=== PATIENT | female | born 2000 | race Two or more races ===

== ENCOUNTER 2024-12-18 01:57 | Emergency (ER) | payer OTHER ==
[~2024-12-18] VITALS: Ht 160 cm; Wt 68.0 kg
[2024-12-18] MEDS ORDERED: CEFTRIAXONE SODIUM 2,000 MG VIAL IV ONE (02:00)
[2024-12-18] MEDS ORDERED: FAMOTIDINE/PF 20 MG in 0.9 % SODIUM CHLORIDE 8 ML IV PUSH STA (02:02)
[2024-12-18] MEDS ORDERED: 0.9 % SODIUM CHLORIDE 1,000 ML IV ONE (02:15)
[2024-12-18] MEDS ORDERED: KETOROLAC TROMETHAMINE 30 MG VIAL IV ONE (02:15)
[2024-12-18 02:41] LABS: HEMATOCRIT 41.1 % (36.0-45.00); HEMOGLOBIN 13.7 g/dL (12.0-15.00); MEAN CELL VOLUME 91.2 fL (80.00-100.00); MEAN CORPUSCULAR HEMOGLOBIN 30.4 pg (27.00-32.0); MEAN CORPUSCULAR HGB CONC 33.3 g/dl (32.0-36.0); PLATELET COUNT 295 K/uL (150-450)
[2024-12-18 02:54] LABS: ALBUMIN 4.4 gm/dL (3.4-5.0); BILIRUBIN TOTAL 0.3 mg/dL (0.3-1.2); CALCIUM 9.5 mg/dL (8.5-10.1); CREATININE SERUM 0.81 mg/dL (0.55-1.02); GFR 86.87; GLOBULINA 3.5 G/DL (2.4-3.5); POTASSIUM 3.78 mEq/L (3.5-5.1); TOTAL PROTEIN 7.9 gm/dL (6.4-8.2)
[2024-12-18 04:25] LABS: URINE APPEARANCE Turbid; URINE BILIRRUBIN Negative (NEGATIVE); URINE BLOOD Large; URINE COLOR Yellow; URINE GLUCOSE Negative (NEGATIVE); URINE KETONE Negative (NEGATIVE); URINE LEUKOCYTE Large; URINE NITRATE Negative; URINE PROTEIN 30 (NEGATIVE); URINE UROBILINOGEN 0.2 E.U./dl
[2024-12-18 04:29] LABS: URINE RBC 381.2 uL (0.0-20.8); URINE WBC 3407.3 uL (0.0-23.2)
[2024-12-18 04:38] LABS: URINE BACTERIA > 9821.5 uL (0.0-1933); URINE CAST 1.32 uL (0.0-1.40); URINE EPITHELIAL CELLS > 201.7 uL (0.0-38.8)
[2024-12-18] MEDS ORDERED: CEPHALEXIN500 MG PO (05:12)
[2024-12-18] MEDS ORDERED: ONDANSETRON HCL 2 MG/ML VIAL ONE (05:19)
[2024-12-18] MEDS ORDERED: ONDANSETRON HCL 2 MG/ML VIAL IV ONE (05:30)
== END 2024-12-18 05:23 | disposition home or self-care (01) ==
LOC: ER 01:57
PROVIDERS: General Practice
DX: N39.0 Urinary tract infection, site not specified (principal); R10.9 Unspecified abdominal pain
CPT/HCPCS: 36415; 74176; 96365; 96366; 99284; J0696; J1885; J2405; J7030

== ENCOUNTER 2025-09-22 22:37 | Emergency (ER) | payer OTHER ==
[~2025-09-22] VITALS: Ht 157.5 cm; Wt 66.7 kg
[~2025-09-22 22:37] MED LIST: CEPHALEXIN500 MG PO
[2025-09-22] MEDS ORDERED: 0.9 % SODIUM CHLORIDE 1,000 ML IV STA (23:15)
[2025-09-22] MEDS ORDERED: CEFTRIAXONE SODIUM 1,000 MG VIAL IV STA (23:15)
[2025-09-22] MEDS ORDERED: CEFTRIAXONE SODIUM 1,000 MG VIAL ONE (23:29)
[2025-09-23 00:05] LABS: BASO % 0.3 % (0.1-1.2); EOS # 0.10 (0.04-0.54); EOS % 0.8 % (0.7-7.0); LYMPH # 2.22 (1.18-3.74); LYMPH % 17.6 % (19.3-53.1); MEAN PLATELET VOLUME 9.30 fl (9.4-12.4); MONO # 0.68 (0.24-0.82); MONO % 5.4 % (4.7-12.5); NEUT # 9.52 (1.56-6.13); NEUT % 75.6 % (34.0-71.1); RED CELL DISTRIBUTION WIDTH 11.9 % (11.6-14.4)
[2025-09-23 00:24] LABS: BUN CREA RATIO 15.0 (7.0-25.0); CREATININE SERUM 0.97 mg/dL (0.55-1.02); GFR 70.55; GLUCOSE FASTING 101.0 mg/dL (65-100); OSMOLALITY SERUM 282.0 MOSM/KG (275-295)
[2025-09-23 00:44] LABS: URINE APPEARANCE Turbid; URINE BILIRRUBIN Negative (NEGATIVE); URINE BLOOD Large; URINE COLOR Yellow; URINE GLUCOSE Negative (NEGATIVE); URINE KETONE Trace (NEGATIVE); URINE LEUKOCYTE Moderate; URINE NITRATE Negative; URINE PROTEIN 30 (NEGATIVE); URINE UROBILINOGEN 0.2 E.U./dl
[2025-09-23 00:47] LABS: URINE EPITHELIAL CELLS 33.8 uL (0.0-38.8); URINE RBC 1117.4 uL (0.0-20.8)
[2025-09-23 00:53] LABS: URINE CAST 0.58 uL (0.0-1.40)
[2025-09-23 00:54] LABS: URINE CRYSTALS MANY /HPF
[2025-09-23] MEDS ORDERED: PYRIDIUM DS200 MG PO (01:24)
[2025-09-23] MEDS ORDERED: BACTRIM DS TAB1 EACH PO (01:24)
== END 2025-09-23 02:13 | disposition home or self-care (01) ==
LOC: ER 22:37
PROVIDERS: General Practice
DX: R10.20 Pelvic and perineal pain unspecified side (principal); R31.9 Hematuria, unspecified; R30.0 Dysuria; N39.0 Urinary tract infection, site not specified

== ENCOUNTER 2025-10-21 20:25 | Emergency (ER) | payer OTHER ==
[~2025-10-21] VITALS: Ht 157.5 cm; Wt 68.9 kg
[~2025-10-21 20:25] MED LIST changes: +BACTRIM DS TAB1 EACH PO; +PYRIDIUM DS200 MG PO
[2025-10-21] MEDS ORDERED: ACETAMINOPHEN 500 MG GEL..CAP PO ONE ×2 (21:30→23:39)
[2025-10-22 00:09] LABS: BASO % 0.3 % (0.1-1.2); EOS # 0.06 (0.04-0.54); EOS % 0.4 % (0.7-7.0); LYMPH # 2.56 (1.18-3.74); LYMPH % 16.8 % (19.3-53.1); MEAN PLATELET VOLUME 9.00 fl (9.4-12.4); MONO # 0.85 (0.24-0.82); MONO % 5.6 % (4.7-12.5); NEUT # 11.63 (1.56-6.13); NEUT % 76.6 % (34.0-71.1); RED CELL DISTRIBUTION WIDTH 12.1 % (11.6-14.4)
[2025-10-22 00:21] LABS: ALT/SGPT 20.0 U/L (12-78); AST/SGOT 19.0 U/L (15-37); BILIRUBIN TOTAL 0.44 mg/dL (0.3-1.2); BUN CREA RATIO 16.0 (7.0-25.0); CREATININE SERUM 0.73 mg/dL (0.55-1.02); GFR 97.14; GLOBULINA 3.5 G/DL (2.4-3.5); GLUCOSE FASTING 94.0 mg/dL (65-100); OSMOLALITY SERUM 288.0 MOSM/KG (275-295)
[2025-10-22 01:17] LABS: URINE APPEARANCE Turbid; URINE BILIRRUBIN Negative (NEGATIVE); URINE BLOOD Large; URINE COLOR Yellow; URINE GLUCOSE Negative (NEGATIVE); URINE KETONE Negative (NEGATIVE); URINE LEUKOCYTE Large; URINE NITRATE Negative; URINE PROTEIN 30 (NEGATIVE); URINE UROBILINOGEN 0.2 E.U./dl
[2025-10-22 01:21] LABS: URINE BACTERIA 6482.8 uL (0.0-1933); URINE EPITHELIAL CELLS 29.1 uL (0.0-38.8)
[2025-10-22 01:51] LABS: URINE CAST 0.28 uL (0.0-1.40); URINE CRYSTALS MANY /HPF
[2025-10-22] MEDS ORDERED: BACTRIM DS TAB1 EACH PO (03:20)
[2025-10-22] MEDS ORDERED: CEFTRIAXONE SODIUM 2,000 MG VIAL IV ONE (03:30)
[2025-10-22] MEDS ORDERED: CEFTRIAXONE SODIUM 2,000 MG VIAL ONE (03:38)
[2025-10-22] MEDS ORDERED: CEFTRIAXONE SODIUM 1,000 MG VIAL IV ONE (04:00)
== END 2025-10-22 04:30 | disposition home or self-care (01) ==
LOC: ER 20:25
PROVIDERS: Preventive Medicine Public Health & General Preventive Medicine
DX: N39.0 Urinary tract infection, site not specified (principal); R31.9 Hematuria, unspecified; B95.7 Other staphylococcus as the cause of diseases classified elsewhere; B96.29 Other Escherichia coli [E. coli] as the cause of diseases classified elsewhere